=== PATIENT | male | born 1945 | race Caucasian/White ===

== ENCOUNTER → 2017-09-10 | Day surgery (SDC) | payer MEDICARE ==
[~2017-09-10] MED LIST: LACTATED RINGER'S 1000 ML INJ 1,000 ML; PROPOFOL 200 MG/20 ML AMP IV; RESP: ALBUTEROL 2.5 MG/3 ML NEB (SCH)
== END | disposition home or self-care (01) ==
LOC: ESDC 08:00
DX: K21.9 Gastro-esophageal reflux disease without esophagitis (principal); K44.9 Diaphragmatic hernia without obstruction or gangrene; K29.70 Gastritis, unspecified, without bleeding; K22.9 Disease of esophagus, unspecified
CPT/HCPCS: 00731; 88305; 88305-59; 88312

== ENCOUNTER 2018-03-24 12:59 | Inpatient (IN) ==
[2018-03-24] MEDS ORDERED: Acetaminophen 325 MG Tablet PO PRN (16:41)
[2018-03-24] MEDS ORDERED: Enoxaparin Inj 40 MG/0.4 ML Syringe SQ SCH (16:45)
--- NOTE | 2018-03-24 16:57 | P.HP ---
<Julia Ag - Last Filed: 03/24/18 17:28> History of Present Illness Primary Care Physician: Ileana Silva MD Chief Complaint: BLE edema History of Present Illness: This is a pleasant 72 year old male with a past medial history which includes Mitral valve regurgitation, Atrial fibrillation s/p ablation x 3, HTN, CKD 3, Gout, hyperlipidemia and GERD. Patient reports over the past month he has been having problems with bilateral lower extremity edema and weight gain. Patient initially was treated by his PCP and his PO Lasix was increased to 40 mg a.m. and 20 mg p.m. At that time patient lost 15 pounds that he gained the weight back again patient's PCP again recently increased his p.o. Lasix to 40 mg p.o. twice daily with no relief in his symptoms. Patient also reports that his abdominal girth has increased as his pants are fitting tighter. Patient denies orthopnea or PND. patient called for an urgent visit with his editorial director Dr. Lyons today was seen by the PA and referred to [facility] as a direct admit for CHF exacerbation. Patient had an echocardiogram done in the office which per verbal report showed normal EF, no diastolic dysfunction, moderate mitral regurgitation volume overload in the right heart. Patient also reports his INR in the office today was greater than 4. Patient denies fevers chills nausea vomiting diarrhea constipation or chest pain. PMH: Mitral valve regurgitation, Atrial fibrillation s/p ablation x 3, HTN, Gout, hyperlipidemia and GERD. PSxH: cardioversion 12/2012 cardiac ablation x 3 12/2012, 02/2014 and 01/[address] Martinez meniscal tear repair 1960s Social history: Denies ETOH use Denies Tobacco use Denies illicit drug use FMH: reviewed and noncontributory - Diagnosis (1) CHF exacerbation Inpatient Certification: I certify that the inpatient services were ordered in accordance with Medicare regulations governing the order. This includes certification that hospital inpatient services are reasonable and necessary and in the case of services not specified as inpatient-only under 42 CFR 419.22(n), that they are appropriately provided as inpatient services in accordance to with the 2-midnight benchmark under 43 CFR 412.3(e) Estimated Total Length of Stay (Days): 3 Plans for Post Hospital Care: Home health Review of Systems All other systems reviewed negative except as stated in HPI Medications and Allergies Allergies Allergy/AdvReac Type Severity Reaction Status Date / Time No Known Allergies Allergy Uncoded 12/30/12 11:34 Home Medications Medication Instructions Recorded Confirmed Type allopurinol 150 mg PO DAILY 03/24/18 03/24/18 History amlodipine 2.5 mg PO DAILY 03/24/18 03/24/18 History aspirin [Aspir-81] 81 mg PO DAILY 03/24/18 03/24/18 History atorvastatin 10 mg PO DAILY 03/24/18 03/24/18 History cholecalciferol (vitamin D3) 2,000 unit PO DAILY 03/24/18 03/24/18 History [Vitamin D3] furosemide [Lasix] 40 mg PO BID 03/24/18 03/24/18 History glucosamine-chondroitin [Osteo 1 tab PO DAILY 03/24/18 03/24/18 History Bi-Flex] hydrocodone-acetaminophen 1 tab PO BID 03/24/18 03/24/18 History metoprolol tartrate 25 mg PO BID 03/24/18 03/24/18 History multivitamin 1 tab PO DAILY 03/24/18 03/24/18 History omeprazole 40 mg PO BID 03/24/18 03/24/18 History potassium chloride 10 meq PO DAILY 03/24/18 03/24/18 History ranitidine HCl 150 mg PO HS 03/24/18 03/24/18 History temazepam 30 mg PO HS PRN 03/24/18 03/24/18 History vit B6-mag cit,oxid-potass cit PO BID 03/24/18 History [Theralith XR] warfarin 2.5 mg PO DAILY 03/24/18 03/24/18 History Active Medications: Active Medications Acetaminophen (Tylenol) 650 mg PO Q4H PRN PRN Reason: Temp > 100.4 Al Hydroxide/Mg Hydroxide (Milk Of Magnesia Liq) 30 ml PO Q12H PRN PRN Reason: Mild Constipation Ondansetron HCl (Zofran Inj) 4 mg IV.PUSH Q6H PRN PRN Reason: NAUSEA OR VOMITING Senna/Docusate Sodium (Margaret-Colace) 1 tab PO BID [facility] Exam Vital signs: Vital Signs 03/24/18 16:02 Temperature 97.1 F L Pulse Rate 45 L Respiratory Rate 16 Blood Pressure 121/68 Pulse Oximetry 96 Narrative: GENERAL: This is a well-nourished, well-developed patient, in no apparent distress. CARDIOVASCULAR: Regular rate and rhythm with 3/6 systolic murmur radiation to left axilla RESPIRATORY: crackles Bilateral bases GASTROINTESTINAL: Abdomen soft, non-tender, nondistended. Normal active bowel sounds MUSCULOSKELETAL: Extremities without clubbing, cyanosis. BLE edema up to the thigh 2-3+ NEURO: Alert & Oriented x4 to person, place, time, situation. Moves all ext x4 Caprini VTE Risk Assessment Caprini VTE Risk Assessment: Moderate/High Risk (score >= 2) Caprini Risk Assessment Model: Point Value = 1 Point Value = 2 Point Value = 3 Point Value = 5 Age 41-60 Minor surgery BMI > 25 kg/m2 Swollen legs Varicose veins or History of unexplained or recurrent spontaneous Oral contraceptives or hormone replacement Sepsis (< 1 month) Serious lung disease, including pneumonia (< 1 month) Abnormal pulmonary function Acute myocardial infarction Congestive heart failure (< 1 month) History of inflammatory bowel disease Medical patient at bed rest Age 61-74 Arthroscopic surgery Major open surgery (> 45 min) Laparoscopic surgery (> 45 min) Malignancy Confined to bed (> 72 hours) Immobilizing plaster cast Central venous access Age >= 75 History of VTE Family history of VTE Factor V Leiden Prothrombin [id number] Lupus anticoagulant Anticardiolipin antibodies Elevated serum homocysteine Heparin-induced thrombocytopenia Other congenital or acquired thrombophilia Stroke (< 1 month) Elective arthroplasty Hip, pelvis, or leg fracture Acute spinal cord injury (< 1 month) Prophylaxis Regimen: Total Risk Factor Score Risk Level Prophylaxis Regimen 0-1 Low Early ambulation 2 Moderate Order ONE of the following: *Sequential Compression Device (SCD) *Heparin 5000 units SQ BID 3-4 Higher Order ONE of the following medications: *Heparin 5000 units SQ TID *Enoxaparin/Lovenox 40 mg SQ daily (WT < 150 kg, CrCl > 30 mL/min) *Enoxaparin/Lovenox 30 mg SQ daily (WT < 150 kg, CrCl > 10-29 mL/min) *Enoxaparin/Lovenox 30 mg SQ BID (WT < 150 kg, CrCl > 30 mL/min) AND/OR *Sequential Compression Device (SCD) 5 or more Highest Order ONE of the following medications: *Heparin 5000 units SQ TID (Preferred with Epidurals) *Enoxaparin/Lovenox 40 mg SQ daily (WT < 150 kg, CrCl > 30 mL/min) *Enoxaparin/Lovenox 30 mg SQ daily (WT < 150 kg, CrCl > 10-29 mL/min) *Enoxaparin/Lovenox 30 mg SQ BID (WT < 150 kg, CrCl > 30 mL/min) AND *Sequential Compression Device (SCD) Assessment and Plan - Assessment (1) CHF exacerbation Code(s): I50.9 - Heart failure, unspecified Status: Acute Plan: CHF exacerbation Mitral valve regurgitation Patient was instructed to [facility] per the request of his editorial director Dr. Lyons. Patient reports he has gained approximately 15 pounds and has noticed bilateral lower extremity edema as well as mild shortness of breath. Echocardiogram done at outpatient editorial director office per verbal report showed normal EF, no diastolic dysfunction, moderate mitral regurgitation volume overload in the right heart STAT BMP, magnesium and phosphorus requested after laboratory data resulted and plan to start Lasix 40 mg IV twice daily monitor daily weights strict I&O Consultation placed to patient's editorial director Dr. Lyons Atrial fibrillation s/p ablation x 3 Patient had an INR check an outpatient editorial director office was greater than 4 will hold Coumadin at this time Recheck INR in a.m. Continuous telemetry monitoring HTN Continue patient's home amlodipine 2.5 mg p.o. daily Monitor blood pressure Gout Continue patient's home allopurinol hyperlipidemia Continue patients on statin GERD Continue patient's home Omeprazole and Zantac DVT prophylaxis with SCDs patient is also on Coumadin <Fito Perales - Last Filed: 03/24/18 21:45> History of Present Illness Primary Care Physician: Ileana Silva MD - Diagnosis (1) CHF exacerbation Inpatient Certification: I certify that the inpatient services were ordered in accordance with Medicare regulations governing the order. This includes certification that hospital inpatient services are reasonable and necessary and in the case of services not specified as inpatient-only under 42 CFR 419.22(n), that they are appropriately provided as inpatient services in accordance to with the 2-midnight benchmark under 43 CFR 412.3(e) Medications and Allergies Active Medications: Active Medications Acetaminophen (Tylenol) 650 mg PO Q4H PRN PRN Reason: Temp > 100.4 Al Hydroxide/Mg Hydroxide (Milk Of Abi Dumont) 30 ml PO Q12H PRN PRN Reason: Mild Constipation Allopurinol (Zyloprim) 150 mg PO DAILY [facility] Amlodipine Besylate (Norvasc) 2.5 mg PO DAILY [facility] Aspirin (Ecotrin) 81 mg PO DAILY [facility] Atorvastatin Calcium (Lipitor) 10 mg PO DAILY [facility] Miscellaneous (Pill Splitter) 1 each OTHER UNSCH PRN PRN Reason: SEE LABEL COMMENTS Ondansetron HCl (Zofran Inj) 4 mg IV.PUSH Q6H PRN PRN Reason: NAUSEA OR VOMITING Pantoprazole Sodium (Protonix) 40 mg PO BID [facility] Last Admin: 03/24/18 20:49 Dose: 40 mg Senna/Docusate Sodium (Margaret-Colace) 1 tab PO BID [facility] Last Admin: 03/24/18 20:48 Dose: 1 tab Exam Vital signs: Vital Signs 03/24/18 16:02 03/24/18 20:00 Temperature 97.1 F L 97.8 F Pulse Rate 45 L 80 Respiratory Rate 16 20 Blood Pressure 121/68 149/93 H Pulse Oximetry 96 93 L Results - Labs CBC & Chem 7: 03/24/18 17:19 Labs: Laboratory Results - last 24 hr 03/24/18 03/24/18 17:19 17:19 Sodium 141 Potassium 4.0 Chloride 105 Carbon Dioxide 31.0 Anion Gap 5 BUN 30 H Creatinine 2.04 H Estimated GFR 32 L Random Glucose 84 Calcium 8.9 Phosphorus 3.4 Magnesium 2.3 - Imaging Impressions Chest X-Ray 03/24/18 00:00 CONCLUSION: Borderline compensated cardiomegaly. Otherwise negative one view chest x-ray. Caprini VTE Risk Assessment Caprini Risk Assessment Model: Point Value = 1 Point Value = 2 Point Value = 3 Point Value = 5 Age 41-60 Minor surgery BMI > 25 kg/m2 Swollen legs Varicose veins or History of unexplained or recurrent spontaneous Oral contraceptives or hormone replacement Sepsis (< 1 month) Serious lung disease, including pneumonia (< 1 month) Abnormal pulmonary function Acute myocardial infarction Congestive heart failure (< 1 month) History of inflammatory bowel disease Medical patient at bed rest Age 61-74 Arthroscopic surgery Major open surgery (> 45 min) Laparoscopic surgery (> 45 min) Malignancy Confined to bed (> 72 hours) Immobilizing plaster cast Central venous access Age >= 75 History of VTE Family history of VTE Factor V Leiden Prothrombin [id number] Lupus anticoagulant Anticardiolipin antibodies Elevated serum homocysteine Heparin-induced thrombocytopenia Other congenital or acquired thrombophilia Stroke (< 1 month) Elective arthroplasty Hip, pelvis, or leg fracture Acute spinal cord injury (< 1 month) Prophylaxis Regimen: Total Risk Factor Score Risk Level Prophylaxis Regimen 0-1 Low Early ambulation 2 Moderate Order ONE of the following: *Sequential Compression Device (SCD) *Heparin 5000 units SQ BID 3-4 Higher Order ONE of the following medications: *Heparin 5000 units SQ TID *Enoxaparin/Lovenox 40 mg SQ daily (WT < 150 kg, CrCl > 30 mL/min) *Enoxaparin/Lovenox 30 mg SQ daily (WT < 150 kg, CrCl > 10-29 mL/min) *Enoxaparin/Lovenox 30 mg SQ BID (WT < 150 kg, CrCl > 30 mL/min) AND/OR *Sequential Compression Device (SCD) 5 or more Highest Order ONE of the following medications: *Heparin 5000 units SQ TID (Preferred with Epidurals) *Enoxaparin/Lovenox 40 mg SQ daily (WT < 150 kg, CrCl > 30 mL/min) *Enoxaparin/Lovenox 30 mg SQ daily (WT < 150 kg, CrCl > 10-29 mL/min) *Enoxaparin/Lovenox 30 mg SQ BID (WT < 150 kg, CrCl > 30 mL/min) AND *Sequential Compression Device (SCD) Assessment and Plan - Assessment (1) CHF exacerbation Code(s): I50.9 - Heart failure, unspecified Status: Acute Plan: The exam, history, and the medical decision-making described in the above note were completed with the assistance of the mid-level provider. I reviewed and agree with the findings presented. I attest that I had a [id number] encounter with the patient on the same day, and personally performed and documented my assessment and findings in the medical record. Pt directtly admitted for acute chf and volume overload. iv lasix and monitor bmp and output. discussed echo result from today with dr Lyons office.
[2018-03-24 17:53] LABS: Calcium 8.9 mg/dL (8.5-10.1); Magnesium 2.3 mg/dL (1.5-2.5)
--- NOTE | 2018-03-24 18:52 | XR ---
EXAM DATE: 03/24/2018 6:48 PM EDT AGE/SEX: 72 years / Male INDICATIONS: Shortness of breath. CLINICAL DATA: This is the patient's initial encounter. Patient reports that signs and symptoms have been present for 1 day and indicates a pain score of 0/10. MEDICAL/SURGICAL HISTORY: . A-Fib. None. COMPARISON: No prior exams available for comparison. FINDINGS: No infiltrate, effusion or pneumothorax demonstrated. Heart size upper limits of normal. CONCLUSION: Borderline compensated cardiomegaly. Otherwise negative one view chest x-ray. Electronically signed by: Migue Hargrove MD 03/24/2018 6:50 PM EDT
[2018-03-24] MEDS: Senna/Docusate Sodium 8.6/50 MG Tablet PO SCH (20:48)
[2018-03-25 07:23] LABS: Baso # (Auto) 0.1 th/mm3 (0.0-0.2); Baso % (Auto) 1.6 % (0.0-2.0); Eos # (Auto) 0.2 th/mm3 (0.0-0.4); Eos % (Auto) 3.2 % (0.0-4.0); Hematocrit 50.1 % (39.0-51.0); Hemoglobin 16.9 gm/dL (13.0-17.0); Lymph # (Auto) 0.9 th/mm3 (1.0-4.8); Lymph % (Auto) 16.1 % (9.0-44.0); Mean Corpuscular HGB Conc 33.8 % (32.0-36.0); Mean Corpuscular Hemoglobin 33.8 pg (27.0-34.0); Mean Corpuscular Volume 99.9 fL (80.0-100.0); Mean Platelet Volume 9.5 fL (7.0-11.0); Mono # (Auto) 0.6 th/mm3 (0.0-0.9); Mono % (Auto) 11.4 % (0.0-8.0); Neut # (Auto) 3.8 th/mm3 (1.8-7.7); Neut % (Auto) 67.7 % (16.0-70.0); Platelet Count 132 th/mm3 (150-450); Red Blood Count 5.01 mil/mm3 (4.50-5.90); Red Cell Distribution Width 17.6 % (11.6-17.2); White Blood Count 5.7 th/mm3 (4.0-11.0)
[2018-03-25 07:34] LABS: INR 3.5 Ratio; Prothrombin Time 35.1 sec (9.8-11.6)
[2018-03-25 07:45] LABS: Carbon Dioxide 22.7 meq/L (21.0-32.0); Potassium 3.7 meq/L (3.5-5.1)
[2018-03-25] MEDS: Temazepam 15 MG Capsule PO SCH ×2 (08:07→22:27)
[2018-03-25] MEDS: amLODIPine 5 MG Tablet PO SCH (09:39)
[2018-03-25] MEDS: Senna/Docusate Sodium 8.6/50 MG Tablet PO SCH ×2 (09:39→22:27)
[2018-03-25] MEDS: Allopurinol 300 MG Tablet PO SCH (09:39)
--- NOTE | 2018-03-25 09:53 | P.PNIM ---
Subjective Interval history: breathing better. less swelling lower extremities. he is limiting fluid intake on his own. dry weight 213 pounds. Physical Exam Vital signs: Vital Signs 03/24/18 16:02 03/24/18 20:00 03/24/18 23:45 Temperature 97.1 F L 97.8 F Pulse Rate 45 L 45 L 55 L Respiratory Rate 16 20 Blood Pressure 121/68 149/93 H Pulse Oximetry 96 93 L 03/25/18 00:00 03/25/18 03:45 03/25/18 04:00 Temperature 97.8 F 97.7 F Pulse Rate 53 L 64 65 Respiratory Rate 20 20 Blood Pressure 128/75 149/85 H Pulse Oximetry 94 L 92 L Intake & Output 03/24/18 03/25/18 03/25/18 18:59 06:59 18:59 Intake Total 240 / 240 Output Total 1400 / 1400 Balance -1160 / -1160 Weight 103.5 kg 103.5 kg Intake: Oral 240 / 240 Output: Urine 1400 / 1400 Other: Weight On Admission 103.5 kg heart reg. ceasar lsb rad to axilla lung basilar crackles...improved abd s/nt/nabs ext 2plus lower ext edema to thighs improving. pedal edema resolved. Results - Labs CBC & Chem 7: 03/25/18 06:30 03/25/18 06:30 Laboratory Results - last 24 hr 03/24/18 03/24/18 03/25/18 17:19 17:19 06:30 WBC 5.7 RBC 5.01 Hgb 16.9 Hct 50.1 MCV 99.9 MCH 33.8 MCHC 33.8 RDW 17.6 H Plt Count 132 L MPV 9.5 Neut % (Auto) 67.7 Lymph % (Auto) 16.1 [place] % (Auto) 11.4 H Eos % (Auto) 3.2 Baso % (Auto) 1.6 Neut # (Auto) 3.8 Lymph # (Auto) 0.9 L [place] # (Auto) 0.6 Eos # (Auto) 0.2 Baso # (Auto) 0.1 WBC Differential . Differential Comment Auto diff final PT INR Sodium 141 Potassium 4.0 Chloride 105 Carbon Dioxide 31.0 Anion Gap 5 BUN 30 H Creatinine 2.04 H Estimated GFR 32 L Random Glucose 84 Calcium 8.9 Phosphorus 3.4 Magnesium 2.3 08/08/18 08/08/18 06:30 06:30 WBC RBC Hgb Hct MCV MCH MCHC RDW Plt Count MPV Neut % (Auto) Lymph % (Auto) [place] % (Auto) Eos % (Auto) Baso % (Auto) Neut # (Auto) Lymph # (Auto) [place] # (Auto) Eos # (Auto) Baso # (Auto) WBC Differential Differential Comment PT 35.1 H INR 3.5 Sodium 142 Potassium 3.7 Chloride 106 Carbon Dioxide 22.7 Anion Gap 13 BUN 27 H Creatinine 1.75 H Estimated GFR 39 L Random Glucose 75 Calcium 9.0 Phosphorus Magnesium - Imaging Impressions Chest X-Ray 03/24/18 00:00 CONCLUSION: Borderline compensated cardiomegaly. Otherwise negative one view chest x-ray. Assessment and Plan - Assessment (1) CHF exacerbation Code(s): I50.9 - Heart failure, unspecified Status: Acute Plan: - Assessment (1) CHF exacerbation Code(s): I50.9 - Heart failure, unspecified Status: Acute Plan: CHF exacerbation moderate Mitral valve regurgitation Patient was instructed to [facility] per the request of his roll form operator Dr. Lyons. Patient reports he has gained approximately 15 pounds and has noticed bilateral lower extremity edema as well as mild shortness of breath. Echocardiogram done at outpatient roll form operator office per verbal report showed normal EF, no diastolic dysfunction, moderate mitral regurgitation volume overload in the right heart Consultation placed to patient's roll form operator Dr. Lyons. pt will inform his roll form operator of some ant chest burning with exertion. cont iv lasix and kcl bid and monitor bmp. cr improved to 1.7 telemetry. pt is fluid restricting to less than 1.5L weight pt and diurese back to dry weight of around 213pounds. Atrial fibrillation s/p ablation x 3 Patient had an INR check an outpatient roll form operator office was greater than 4 will hold Coumadin at this time inr 3.5 today Continuous telemetry monitoring HTN Continue patient's home amlodipine 2.5 mg p.o. daily Monitor blood pressure Gout Continue patient's home allopurinol hyperlipidemia Continue patients on statin GERD Continue patient's home Omeprazole and Zantac DVT prophylaxis with SCDs patient is also on Coumadin
--- NOTE | 2018-03-25 10:26 | P.CONCA ---
History of Present Illness Service: Cardiology Consult date: 03/25/18 Reason for Consult: Congestive heart failure Primary Care Provider: Ileana Silva MD Chief Complaint: BLE edema History of Present Illness: Pleasant 72-year-old male was seen in our office yesterday for an urgent visit with a complaint of a recent 20 pound weight gain shortness of breath on exertion and central chest burning. He has a significant past cardiac history of atrial fibrillation with 3 ablations in the past with Dr. Landaverde, currently on Coumadin. His INR was elevated in the office yesterday. He has a history of ASHD with a heart cath in 2011 showing a 50% LAD lesion with normal LV function he had a negative cardiac PET scan July 2015. History of hypertension managed with medications on exam and office yesterday he had 3+ bilateral lower extremity pitting edema, JVD elevated at 4 cm, despite recent increase in diuretics minimal diuresis was noted. Patient has a history of renal insufficiency, follows with Dr. Coombs. Most recent creatinine was 1.9 last week. He admits to increasing shortness of breath over the past couple of weeks. Had chest tightness [place] few [place] Denies any chest pain today. Patient reports significant diuresis overnight, he reports his breathing has improved some he was able to lay in the bed without feeling short of breath, edema has improved when compared to yesterday. We will plan to continue with IV diuresis and careful monitoring of renal function. Nephrology has been consulted. Review of Systems Constitutional: Reports lack of energy, Reports weakness Cardiovascular: Reports shortness of breath, Reports shortness of breath with activity, Reports shortness of breath when lying down Comments: had chest burning a few weeks ago. Respiratory: Reports shortness of breath, Reports shortness of breath with activity Comments: admits to increased abdominal girth. Comments: increase in BLE edema. PMFSH - History History Provided By: Patient - Medical History Medical History: Medical History (Last Updated 03/25/18 @ 10:20 by Kalina Shadeed) Mitral regurgitation (Acute) Heart failure (Acute) Atrial fibrillation (Acute) - Tobacco History Second Hand Smoke Exposure: No Tobacco Use In Past 30 Days: No Smoking Status: Former smoker Tobacco Type: Cigarettes - Alcohol History How Often Do You Have a Drink Containing Alcohol: Never - Substance Use History Substance History: No History of Abuse - Immunization History Tetanus Immunization: <5 Years Hx Influenza Vaccine This Season: Yes Medications and Allergies Active Medications: Active Medications Acetaminophen (Tylenol) 650 mg PO Q4H PRN PRN Reason: Temp > 100.4 Hydrocodone Bitart/Acetaminophen ([place] 5/325) 1 tab PO ONCE ONE Stop: 03/25/18 09:50 Hydrocodone Bitart/Acetaminophen ([place] 5/325) 1 tab PO BID@07,17 [facility] Al Hydroxide/Mg Hydroxide (Milk Of [place]) 30 ml PO Q12H PRN PRN Reason: Mild Constipation Allopurinol (Zyloprim) 150 mg PO DAILY [facility] Last Admin: 03/25/18 09:39 Dose: 150 mg Amlodipine Besylate (Norvasc) 2.5 mg PO DAILY [facility] Last Admin: 03/25/18 09:39 Dose: 2.5 mg Aspirin (Ecotrin) 81 mg PO DAILY [facility] Last Admin: 03/25/18 09:40 Dose: 81 mg Atorvastatin Calcium (Lipitor) 10 mg PO DAILY [facility] Last Admin: 03/25/18 09:40 Dose: 10 mg Furosemide (Lasix Inj) 40 mg IV.PUSH BID@0900,1800 [facility] Last Admin: 03/25/18 09:38 Dose: 40 mg Miscellaneous (Pill Splitter) 1 each OTHER UNSCH PRN PRN Reason: SEE LABEL COMMENTS Ondansetron HCl (Zofran Inj) 4 mg IV.PUSH Q6H PRN PRN Reason: NAUSEA OR VOMITING Pantoprazole Sodium (Protonix) 40 mg PO BID [facility] Last Admin: 03/25/18 09:39 Dose: 40 mg Potassium Chloride (K-Dur) 20 meq PO BID [facility] Senna/Docusate Sodium (Margaret-Colace) 1 tab PO BID [facility] Last Admin: 03/25/18 09:39 Dose: 1 tab Temazepam (Restoril) 30 mg PO HS [facility] Last Admin: 03/25/18 08:07 Dose: Not Given Allergies Allergy/AdvReac Type Severity Reaction Status Date / Time No Known Allergies Allergy Uncoded 12/30/12 11:34 Home Medications Medication Instructions Recorded Confirmed Type allopurinol 150 mg PO DAILY 03/24/18 03/24/18 History amlodipine 2.5 mg PO DAILY 03/24/18 03/24/18 History aspirin [Aspir-81] 81 mg PO DAILY 03/24/18 03/24/18 History atorvastatin 10 mg PO DAILY 03/24/18 03/24/18 History cholecalciferol (vitamin D3) 2,000 unit PO DAILY 03/24/18 03/24/18 History [Vitamin D3] furosemide [Lasix] 40 mg PO BID 03/24/18 03/24/18 History glucosamine-chondroitin [Osteo 1 tab PO DAILY 03/24/18 03/24/18 History Bi-Flex] hydrocodone-acetaminophen 1 tab PO BID 03/24/18 03/24/18 History metoprolol tartrate 25 mg PO BID 03/24/18 03/24/18 History multivitamin 1 tab PO DAILY 03/24/18 03/24/18 History omeprazole 40 mg PO BID 03/24/18 03/24/18 History potassium chloride 10 meq PO DAILY 03/24/18 03/24/18 History ranitidine HCl 150 mg PO HS 03/24/18 03/24/18 History temazepam 30 mg PO HS PRN 03/24/18 03/24/18 History vit B6-mag cit,oxid-potass cit PO BID 03/24/18 History [Theralith XR] warfarin 2.5 mg PO DAILY 03/24/18 03/24/18 History Exam Vital signs: Vital Signs 03/24/18 16:02 03/24/18 20:00 03/24/18 23:45 Temperature 97.1 F L 97.8 F Pulse Rate 45 L 45 L 55 L Respiratory Rate 16 20 Blood Pressure 121/68 149/93 H Pulse Oximetry 96 93 L 03/25/18 00:00 03/25/18 03:45 03/25/18 04:00 Temperature 97.8 F 97.7 F Pulse Rate 53 L 64 65 Respiratory Rate 20 20 Blood Pressure 128/75 149/85 H Pulse Oximetry 94 L 92 L Intake & Output 03/24/18 03/25/18 03/25/18 18:59 06:59 18:59 Intake Total 240 / 240 Output Total 1400 / 1400 Balance -1160 / -1160 Weight 103.5 kg 103.5 kg Intake: Oral 240 / 240 Output: Urine 1400 / 1400 Other: Weight On Admission 103.5 kg - Constitutional no acute distress - Routine HEENT Exam Head: Present: atraumatic Eye: Present: normal accommodation ENT: Present: mucous membranes moist - Routine Neck Exam Present: JVD - Routine Respiratory Exam Present: crackles, diminished air movement - Routine Cardiovascular Exam Present: RRR - Routine Abdominal Exam Present: distended - Routine Extremities Exam Comments: 3+ BLE pitting edema - Routine Skin Exam Present: intact - Routine Neurological Exam Present: alert, oriented X3 Results 03/25/18 06:30 03/25/18 06:30 Coagulation 03/25/18 Range/Units 06:30 PT 35.1 H (9.8-11.6) sec CBC 03/25/18 Range/Units 06:30 WBC 5.7 (4.0-11.0) th/mm3 RBC 5.01 (4.50-5.90) mil/mm3 Hgb 16.9 (13.0-17.0) gm/dL Hct 50.1 (39.0-51.0) % Plt Count 132 L (150-450) th/mm3 Neut # (Auto) 3.8 (1.8-7.7) th/mm3 Lymph # (Auto) 0.9 L (1.0-4.8) th/mm3 [place] # (Auto) 0.6 (0.0-0.9) th/mm3 Eos # (Auto) 0.2 (0.0-0.4) th/mm3 Baso # (Auto) 0.1 (0.0-0.2) th/mm3 Comprehensive Metabolic Panel 03/24/18 03/25/18 Range/Units 17:19 06:30 Sodium 141 142 (136-145) meq/L Potassium 4.0 3.7 (3.5-5.1) meq/L Chloride 105 106 (98-107) meq/L Carbon Dioxide 31.0 22.7 (21.0-32.0) meq/L BUN 30 H 27 H (7-18) mg/dL Creatinine 2.04 H 1.75 H (0.60-1.30) mg/dL Calcium 8.9 9.0 (8.5-10.1) mg/dL Intake and Output 03/24/18 03/25/18 03/25/18 22:59 06:59 14:59 Intake Total 240 / 240 Output Total 1400 / 1400 Balance -1160 / -1160 Intake: Oral 240 / 240 Output: Urine 1400 / 1400 Other: Weight 103.5 kg 103.5 kg Weight On Admission 103.5 kg Patient Weight 03/26/18 06:59 Weight 103.5 kg Assessment and Plan - Plan Congestive heart failure Atrial fibrillation Renal Insufficiency HTN Hyperlipidemia Acute heart failure with preserved EF. Echocardiogram was completed yesterday in office and showed preserved ejection fraction of 55%, bilateral atrial enlargement, left ventricular enlargement, left ventricular hypertrophy, posterior leaflet calcification, eccentric moderate MR jet with nonclosure of mitral valve leaflets, aortic cusp calcification, right heart enlargement, pulmonary hypertension, RV systolic dysfunction, RVSP = 92mmgh, D shaped LV. -Will continue with Lasix 40mg IV BID and careful monitoring of renal function. -Continues in SR. INR was elevated yesterday in office at 4.0. Will hold coumadin and repeat INR in AM -Nephrology consulted -Controlled on current medications. -On statin The patient was seen and evaluated by Dr. Lyons who completed face to face encounter and physical exam, and participated in care, management, and decision making. Code Status: Full Discussed Condition With: Nurse
[2018-03-26] MEDS: amLODIPine 5 MG Tablet PO SCH (08:23)
[2018-03-26] MEDS: Senna/Docusate Sodium 8.6/50 MG Tablet PO SCH ×2 (08:25→21:10)
[2018-03-26] MEDS: Allopurinol 300 MG Tablet PO SCH (08:25)
[2018-03-26 09:45] LABS: INR 3.1 Ratio; Prothrombin Time 31.7 sec (9.8-11.6)
[2018-03-26 10:03] LABS: Calcium 9.1 mg/dL (8.5-10.1); Carbon Dioxide 27.5 meq/L (21.0-32.0); Potassium 3.6 meq/L (3.5-5.1)
--- NOTE | 2018-03-26 11:56 | P.PNIM ---
Subjective Interval history: breathing easier less edema Physical Exam Vital signs: Vital Signs 03/25/18 12:00 03/25/18 16:00 03/25/18 16:01 Temperature 97.3 F L 97.6 F Pulse Rate 59 L 59 L 55 L Respiratory Rate 18 18 Blood Pressure 128/72 121/74 Pulse Oximetry 95 95 03/25/18 19:15 03/25/18 20:00 03/26/18 00:00 Temperature 97.8 F 97.8 F Pulse Rate 55 L 60 59 L Respiratory Rate 18 17 Blood Pressure 139/76 136/93 H Pulse Oximetry 95 94 L 03/26/18 00:11 03/26/18 04:00 03/26/18 08:00 Temperature 97.2 F L 98.0 F Pulse Rate 51 L 62 52 L Respiratory Rate 17 17 Blood Pressure 143/85 H 133/76 Pulse Oximetry 92 L 96 Intake & Output 03/25/18 03/26/18 03/26/18 18:59 06:59 18:59 Intake Total 720 / 720 240 / 240 Output Total 1400 / 1400 500 / 500 Balance -680 / -680 -260 / -260 Weight 103.5 kg 101.4 kg Intake: Oral 720 / 720 240 / 240 Output: Urine 1400 / 1400 500 / 500 Other: # Bowel Movements 1 Weight On Admission 103.5 kg heart reg. systolic murmer radiation to left axilla lung cta abd s/nt ext 2plus pitting edema to knee trista. Results - Labs CBC & Chem 7: 03/25/18 06:30 03/26/18 08:45 Laboratory Results - last 24 hr 03/26/18 03/26/18 08:45 08:45 PT 31.7 H INR 3.1 Sodium 141 Potassium 3.6 Chloride 104 Carbon Dioxide 27.5 Anion Gap 10 BUN 22 H Creatinine 1.68 H Estimated GFR 40 L Random Glucose 86 Calcium 9.1 Assessment and Plan - Assessment (1) CHF exacerbation Code(s): I50.9 - Heart failure, unspecified Status: Acute Plan: - Assessment (1) CHF exacerbation Code(s): I50.9 - Heart failure, unspecified Status: Acute Plan: CHF exacerbation. secondary to mvr until proven otherwise. moderate Mitral valve regurgitation Patient was instructed to [facility] per the request of his row boss Dr. Lyons. Patient reports he has gained approximately 15 pounds and has noticed bilateral lower extremity edema as well as mild shortness of breath. Echocardiogram done at outpatient row boss office per verbal report showed normal EF, no diastolic dysfunction, moderate mitral regurgitation volume overload in the right heart Consultation placed to patient's row boss Dr. Lyons. cont iv lasix but give extra dose today. I weighed him on scale and he is at 217 pounds. dry weight around 213. was 229 before diureses monitor bmp. cr improved. CESAR planned as outpt to further evaluate the mitral valve. Atrial fibrillation s/p ablation x 3 Patient had an INR check an outpatient row boss office was greater than 4 will hold Coumadin at this time inr 3.1 today Continuous telemetry monitoring HTN Continue patient's home amlodipine 2.5 mg p.o. daily Monitor blood pressure Gout Continue patient's home allopurinol hyperlipidemia Continue patients on statin GERD Continue patient's home Omeprazole and Zantac DVT prophylaxis with SCDs patient is also on Coumadin
--- NOTE | 2018-03-26 13:50 | P.PNCA ---
<Cassie Mata - Last Filed: 03/26/18 13:39> Subjective Interval history: The patient complains of progressive BLE edema. No CP, SOB or palpitations. Tele reviewed. BP stable. I/O net negative. Weight loss 2 kg. INR 3.1. Cr 1.68, K+ 3.6 Physical Exam Vital signs: Vital Signs 03/25/18 16:00 03/25/18 16:01 03/25/18 19:15 Temperature 97.6 F Pulse Rate 59 L 55 L 55 L Respiratory Rate 18 Blood Pressure 121/74 Pulse Oximetry 95 03/25/18 20:00 03/26/18 00:00 03/26/18 00:11 Temperature 97.8 F 97.8 F Pulse Rate 60 59 L 51 L Respiratory Rate 18 17 Blood Pressure 139/76 136/93 H Pulse Oximetry 95 94 L 03/26/18 04:00 03/26/18 08:00 03/26/18 12:00 Temperature 97.2 F L 98.0 F 97.6 F Pulse Rate 62 52 L 68 Respiratory Rate 17 17 18 Blood Pressure 143/85 H 133/76 135/72 Pulse Oximetry 92 L 96 95 Intake & Output 03/25/18 03/26/18 03/26/18 18:59 06:59 18:59 Intake Total 720 / 720 240 / 240 Output Total 1400 / 1400 500 / 500 Balance -680 / -680 -260 / -260 Weight 103.5 kg 101.4 kg Intake: Oral 720 / 720 240 / 240 Output: Urine 1400 / 1400 500 / 500 Other: # Bowel Movements 1 Weight On Admission 103.5 kg - Constitutional no acute distress - Routine HEENT Exam Head: Present: normocephalic, atraumatic ENT: Present: mucous membranes moist - Routine Neck Exam Present: JVD - Routine Respiratory Exam Present: rales - Detailed Respiratory Exam bilateral Present: rales - Routine Cardiovascular Exam Present: RRR, murmur, S3 - Routine Abdominal Exam Present: soft - Routine Extremities Exam Present: edema - Routine Skin Exam Present: intact - Routine Neurological Exam Present: alert, oriented X3 Assessment and Plan - Plan Acute congestive heart failure with preserved EF. Mitral regurgitation Atrial fibrillation Resolving YFN HTN Hyperlipidemia Acute heart failure with preserved EF. Echocardiogram was completed yesterday in office and showed preserved ejection fraction of 55%, bilateral atrial enlargement, left ventricular enlargement, left ventricular hypertrophy, posterior leaflet calcification, eccentric moderate MR jet with nonclosure of mitral valve leaflets, aortic cusp calcification, right heart enlargement, pulmonary hypertension, RV systolic dysfunction, RVSP = 92mmgh, D shaped LV. -Lasix IV increased. Received Lasix 40 mg IVP this morning. Pending two additional doses today. - Scheduled K+ - Follow up BMP in the AM. -INR 3.1 today. We will recheck INR tomorrow and plan to resume warfarin tomorrow. -CESAR outpatient The patient was seen and evaluated by Dr. Lyons who completed face to face encounter and physical exam, and participated in care, management, and decision making. <Buddy Lyons - Last Filed: 03/31/18 10:15> Physical Exam Vital signs: Vital Signs 03/26/18 20:00 03/27/18 00:00 03/27/18 01:22 Temperature 97.4 F L 97.8 F Pulse Rate 57 L 66 Respiratory Rate 17 17 17 Blood Pressure 133/74 129/75 Pulse Oximetry 95 97 03/27/18 04:00 03/27/18 04:19 03/27/18 08:00 Temperature 97.6 F Pulse Rate 58 L 69 69 Respiratory Rate 18 Blood Pressure 116/58 L Pulse Oximetry 95 Intake & Output 03/26/18 03/27/18 03/27/18 18:59 06:59 18:59 Intake Total 840 / 840 Output Total 1700 / 1700 Balance -860 / -860 Weight 101 kg Intake: Oral 840 / 840 Output: Urine 1700 / 1700 Other: # Bowel Movements 0 Assessment and Plan - Plan The exam, history, and the medical decision-making described in the above note were completed with the assistance of the mid-level provider. I reviewed and agree with the findings presented. He is doing better may need one more day.
[2018-03-26] MEDS: Temazepam 15 MG Capsule PO SCH (21:10)
[2018-03-27 05:19] LABS: Calcium 8.8 mg/dL (8.5-10.1); Carbon Dioxide 31.4 meq/L (21.0-32.0); Potassium 3.8 meq/L (3.5-5.1)
--- NOTE | 2018-03-27 09:39 | P.PNCA ---
Subjective Interval history: Patient resting in bed, he reports feeling better. Continues to have 3+ BLE pitting edema. Breathing has improved. Creatinine improved on AM labs. Pt is ready to go home. Will plan to discharge after lunch today. Physical Exam Vital signs: Vital Signs 03/26/18 12:00 03/26/18 16:00 03/26/18 20:00 Temperature 97.6 F 97.7 F 97.4 F L Pulse Rate 61 70 57 L Respiratory Rate 18 18 17 Blood Pressure 135/72 125/71 133/74 Pulse Oximetry 95 95 95 03/27/18 00:00 03/27/18 01:22 03/27/18 04:00 Temperature 97.8 F 97.6 F Pulse Rate 66 58 L Respiratory Rate 18 Blood Pressure 129/75 116/58 L Pulse Oximetry 97 95 03/27/18 04:19 Temperature Pulse Rate 69 Respiratory Rate Blood Pressure Pulse Oximetry Intake & Output 03/26/18 03/27/18 03/27/18 18:59 06:59 18:59 Intake Total 840 / 840 Output Total 1700 / 1700 Balance -860 / -860 Weight 101 kg Intake: Oral 840 / 840 Output: Urine 1700 / 1700 Other: # Bowel Movements 0 - Constitutional no acute distress - Routine HEENT Exam Head: Present: atraumatic Eye: Present: PERRL, normal accommodation, conjunctivae pink ENT: Present: mucous membranes moist - Routine Neck Exam Present: JVD Comments: JVD 3cm - Routine Respiratory Exam Present: distant breath sounds - Routine Cardiovascular Exam Present: RRR, murmur - Routine Abdominal Exam Present: soft, distended - Routine Extremities Exam Present: edema Comments: 3+ BLE pitting edema - Routine Skin Exam Present: intact - Routine Neurological Exam Present: alert, oriented X3 - Detailed Neurological Exam: Coma Scale Eye Opening: Spontaneous Verbal Response: Oriented Motor Response: Obey commands [place] Coma Scale Total: 15 - Routine Psychiatric Exam Present: normal affect, cooperative Assessment and Plan - Plan Acute congestive heart failure with preserved EF. Mitral regurgitation Atrial fibrillation Resolving YFN HTN Hyperlipidemia Acute heart failure with preserved EF. Echocardiogram was completed yesterday in office and showed preserved ejection fraction of 55%, bilateral atrial enlargement, left ventricular enlargement, left ventricular hypertrophy, posterior leaflet calcification, eccentric moderate MR jet with nonclosure of mitral valve leaflets, aortic cusp calcification, right heart enlargement, pulmonary hypertension, RV systolic dysfunction, RVSP = 92mmgh, D shaped LV. - Will plan to discharge home on torsemide 20mg BID and KCL 20meq. - Creatinine improving -INR 3.1 today. Will resume home dose of coumadin today. -CESAR outpatient to evaluate valve further. Patient is cleared to DC home from a cardiology standpoint. Will see in office next week for HFU. The patient was seen and evaluated by Dr. Lyons who completed face to face encounter and physical exam, and participated in care, management, and decision making. Discussed Condition With: Nurse
[2018-03-27] MEDS: amLODIPine 5 MG Tablet PO SCH (10:31)
[2018-03-27] MEDS: Allopurinol 300 MG Tablet PO SCH (10:32)
[2018-03-27] MEDS: Senna/Docusate Sodium 8.6/50 MG Tablet PO SCH (10:32)
--- NOTE | 2018-03-27 10:54 | P.PNIM ---
Subjective Interval history: eager for dc says his remaining swelling below the knee is is longtime baseline. breathing ok and ambulating. Physical Exam Vital signs: Vital Signs 03/26/18 12:00 03/26/18 16:00 03/26/18 20:00 Temperature 97.6 F 97.7 F 97.4 F L Pulse Rate 61 70 57 L Respiratory Rate 18 18 17 Blood Pressure 135/72 125/71 133/74 Pulse Oximetry 95 95 95 03/27/18 00:00 03/27/18 01:22 03/27/18 04:00 Temperature 97.8 F 97.6 F Pulse Rate 66 58 L Respiratory Rate 17 17 18 Blood Pressure 129/75 116/58 L Pulse Oximetry 97 95 03/27/18 04:19 Temperature Pulse Rate 69 Respiratory Rate Blood Pressure Pulse Oximetry Intake & Output 03/26/18 03/27/18 03/27/18 18:59 06:59 18:59 Intake Total 840 / 840 Output Total 1700 / 1700 Balance -860 / -860 Weight 101 kg Intake: Oral 840 / 840 Output: Urine 1700 / 1700 Other: # Bowel Movements 0 heart reg lung cta abd s/nt ext 2plus pitting below knee trista. Results - Labs CBC & Chem 7: 03/25/18 06:30 03/27/18 04:36 Laboratory Results - last 24 hr 03/26/18 03/27/18 20:03 04:36 Sodium 141 Potassium 3.8 Chloride 103 Carbon Dioxide 31.4 Anion Gap 7 BUN 19 H Creatinine 1.61 H Estimated GFR 42 L POC Glucose 83 Random Glucose 81 Calcium 8.8 Assessment and Plan - Assessment (1) CHF exacerbation Code(s): I50.9 - Heart failure, unspecified Status: Acute Plan: - Assessment (1) CHF exacerbation Code(s): I50.9 - Heart failure, unspecified Status: Acute Plan: CHF exacerbation. secondary to mvr until proven otherwise. moderate Mitral valve regurgitation Patient was instructed to [facility] per the request of his continuous dryout operator helper Dr. Lyons. Patient reports he has gained approximately 15 pounds and has noticed bilateral lower extremity edema as well as mild shortness of breath. Echocardiogram done at outpatient continuous dryout operator helper office per verbal report showed normal EF, no diastolic dysfunction, moderate mitral regurgitation volume overload in the right heart Consultation placed to patient's continuous dryout operator helper Dr. Lyons. Pt was given iv lasix and wt dropped from 229 to 111 pounds this AM. cr is improving down to 1.6 discussed with his continuous dryout operator helper....plan to give 2more dose iv lasix today then dc later today on torsemide 20mg bid with 20 kcl and lower coumadin to 1.25mg daily....f/u next week in cardiology office CESAR planned as outpt to further evaluate the mitral valve. Atrial fibrillation s/p ablation x 3 Patient had an INR check an outpatient continuous dryout operator helper office was greater than 4 will hold Coumadin at this time see above HTN Continue patient's home amlodipine 2.5 mg p.o. daily Monitor blood pressure Gout Continue patient's home allopurinol hyperlipidemia Continue patients on statin GERD Continue patient's home Omeprazole and Zantac DVT prophylaxis with SCDs patient is also on Coumadin
[2018-03-27 11:39] LABS: INR 2.7 Ratio
--- NOTE | 2018-04-03 08:31 | P.DS ---
Date of admission: 03/24/18 14:06 Primary care physician: Ileana Silva MD Anticipated date of discharge: 03/27/18 Brief History from admission: This is a pleasant 72 year old male with a past medial history which includes Mitral valve regurgitation, Atrial fibrillation s/p ablation x 3, HTN, CKD 3, Gout, hyperlipidemia and GERD. Patient reports over the past month he has been having problems with bilateral lower extremity edema and weight gain. Patient initially was treated by his PCP and his PO Lasix was increased to 40 mg a.m. and 20 mg p.m. At that time patient lost 15 pounds that he gained the weight back again patient's PCP again recently increased his p.o. Lasix to 40 mg p.o. twice daily with no relief in his symptoms. Patient also reports that his abdominal girth has increased as his pants are fitting tighter. Patient denies orthopnea or PND. patient called for an urgent visit with his hydroelectric plant electrical engineer Dr. Lyons today was seen by the PA and referred to [facility] as a direct admit for CHF exacerbation. Patient had an echocardiogram done in the office which per verbal report showed normal EF, no diastolic dysfunction, moderate mitral regurgitation volume overload in the right heart. Patient also reports his INR in the office today was greater than 4. Patient denies fevers chills nausea vomiting diarrhea constipation or chest pain. PMH: Mitral valve regurgitation, Atrial fibrillation s/p ablation x 3, HTN, Gout, hyperlipidemia and GERD. PSxH: cardioversion 12/2012 cardiac ablation x 3 12/2012, 02/2014 and 01/[address] Martinez meniscal tear repair 1960s Social history: Denies ETOH use Denies Tobacco use Denies illicit drug use FMH: reviewed and noncontributory DS: Diagnosis - Discharge Diagnosis (1) CHF exacerbation Status: Acute DS: Medications - Discharge Medications Prescriptions: potassium chloride 20 meq PO DAILY 30 Days tab torsemide 20 mg PO BID 30 Days #120 tab warfarin [Coumadin] 1.25 mg PO DAILY 30 Days #15 tab DS: Summary Hospital Course: (1) CHF exacerbation Code(s): I50.9 - Heart failure, unspecified Status: Acute Plan: CHF exacerbation. secondary to mvr until proven otherwise. moderate Mitral valve regurgitation Patient was instructed to [facility] per the request of his hydroelectric plant electrical engineer Dr. Lyons. Patient reports he has gained approximately 15 pounds and has noticed bilateral lower extremity edema as well as mild shortness of breath. Echocardiogram done at outpatient hydroelectric plant electrical engineer office per verbal report showed normal EF, no diastolic dysfunction, moderate mitral regurgitation volume overload in the right heart Consultation placed to patient's hydroelectric plant electrical engineer Dr. Lyons. Pt was given iv lasix and wt dropped from 229 to 111 pounds this AM. cr is improving down to 1.6 discussed with his hydroelectric plant electrical engineer....plan to give 2more dose iv lasix today then dc later today on torsemide 20mg bid with 20 kcl and lower coumadin to 1.25mg daily....f/u next week in cardiology office RIO planned as outpt to further evaluate the mitral valve. Atrial fibrillation s/p ablation x 3 Patient had an INR check an outpatient hydroelectric plant electrical engineer office was greater than 4 will hold Coumadin at this time see above HTN Continue patient's home amlodipine 2.5 mg p.o. daily Monitor blood pressure Gout Continue patient's home allopurinol hyperlipidemia Continue patients on statin GERD Continue patient's home Omeprazole and Zantac DVT prophylaxis with SCDs patient is also on Coumadin - Time Spent with Patient Total time spent providing and/or coordinating discharge services: Greater than 30 minutes - Quality: VTE Deep Vein Thrombosis/Pulmonary Embolism Present on Admission: No Exam Vital signs: heart reg. systolic murm lsb to axilla lung cta abd s/nt ext thigh edema resolved. 2plus lower ext edema trista Results Procedures completed during hospitalization: none - Impressions ITS Impressions Chest X-Ray 03/24/18 00:00 CONCLUSION: Borderline compensated cardiomegaly. Otherwise negative one view chest x-ray. Discharge Plan - Discharge Disposition Patient Disposition: Discharge Home - Discharge Condition Condition: Stable - Discharge Order Discharge Orders: Discharge Order (Routine); Ordered 03/27/18 Ordered By: Fito Perales Cardiology Clear for Discharge (Routine); Ordered 03/27/18 Ordered By: November Shadeed - Discharge Details Anticipated Discharge Date: 03/27/18 Discharge Comment: dc home after 1pm dose lasix and seen by Dr Lyons. - Physicians Team Primary Care Provider: Ileana Silva Attending Provider: Fito Perales Other Providers: Buddy Lyons MD - Rxs /Orders / Referrals /Forms Prescriptions: New torsemide 10 mg Tablet 20 mg PO BID 30 Days Qty: 120 RF: 3 warfarin [Coumadin] 2.5 mg Tablet 1.25 mg PO DAILY 30 Days Qty: 15 RF: 3 Continue allopurinol 300 mg Tablet 150 mg PO DAILY amlodipine 5 mg Tablet 2.5 mg PO DAILY aspirin [Aspir-81] 81 mg Tablet,Delayed Release (Dr/Ec) 81 mg PO DAILY atorvastatin 10 mg Tablet 10 mg PO DAILY cholecalciferol (vitamin D3) [Vitamin D3] 2,000 unit Capsule 2,000 unit PO DAILY glucosamine-chondroitin [Osteo Bi-Flex] 250-200 mg Tablet 1 tab PO DAILY hydrocodone-acetaminophen 5-325 mg Tablet 1 tab PO BID metoprolol tartrate 25 mg Tablet 25 mg PO BID multivitamin Tablet 1 tab PO DAILY omeprazole 20 mg Capsule,Delayed Release(Dr/Ec) 40 mg PO BID ranitidine HCl 150 mg Tablet 150 mg PO HS temazepam 30 mg Capsule 30 mg PO HS PRN (Reason: Insomnia) vit B6-mag cit,oxid-potass cit [Theralith XR] 3.75-45-45-49.5 mg Tablet Extended Release PO BID Changed potassium chloride 10 mEq Tablet Extended Release 20 meq PO DAILY 30 Days RF: 0 Changed from: 10 meq oral daily Discontinued furosemide [Lasix] 40 mg Tablet 40 mg PO BID warfarin 2.5 mg Tablet 2.5 mg PO DAILY Referrals: Buddy Lyons MD [Physician] - See Instructions (3-5 days. check bmp, inr and reassess fluid overload. schedule rio.) Ileana Silva MD [Primary Care Provider] - See Instructions (1 week f/u) - Discharge Instructions Patient Printed Instructions: Warfarin (By mouth), Torsemide (By mouth), Heart Failure (DC), A-fib (Atrial Fibrillation) (DC) Additional Instructions: FOLLOW UP WITH DR LYONS NEXT WEEK; HAVE LABWORK FOR BMP AND PT/INR; DR LYONS WILL SCHEDULE A RIO TO CHECK YOUR MITRAL VALVE; WEAR ANETTE HOSE WHEN OUT OF BED; REMOVE AT NIGHT. - Post Discharge Care Plan Care Plan Goals: Discharge Care Plan Goals for Congestive Heart Failure Directions to Meet your Goals: 1. Diet: Limit your salt by doing the following: * Limit canned, dried, packaged, and fast foods. * Don't add salt to your food. * Season foods with herbs instead of salt. * Watch how much liquids you drink. Drinking too much can make heart failure worse. Talk with your health care provider about how much you should drink each day. * Limit the amount of alcohol you drink. It may harm your heart. Women should have no more than 1 drink a day and men should have no more than 2. * When you eat out, request that your meals have no added salt. 2. Activity: * You can benefit from simple activities such as walking or gardening. * Exercising most days of the week can make you feel better. * Don't be discouraged if your progress is slow at first. * Rest as needed. * Stop activity if you develop symptoms such as chest pain, lightheadedness, or significant shortness of breath. * Find activities that you enjoy, such as brisk walking, dancing, swimming, or gardening. These will help you stay active and strengthen your heart. 3. Medicine: * Take your medicines exactly as prescribed. * Learn the names and purpose of each of your medicines. * Keep an accurate medicine list and current dosages with you at all times. Don' t skip doses. * If you miss a dose of your medicine, take it as soon as you remember. * If you miss a dose and it's almost time for your next dose, just wait and take your next dose at the normal time. Don't take a double dose. * If you are unsure, call your doctor's office. Make sure not to mix up your medicines or forget what you've taken the same day. 4. Weight Monitoring: * Weigh yourself every day. A sudden weight gain can mean your heart failure is getting worse. * Weigh yourself at the same time of day and in the same kind of clothes. * Ideally, weigh yourself first thing in the morning after you empty your bladder, but before you eat breakfast. * If your weight goes up by more than 2 pounds in 1 day, 5 pounds in 1 week, or whatever weight gain you were told by your doctor, this is a sign that you are retaining more fluid than you should be. * Clues to weight gain include checking your ankles for swelling, or noticing you are short of breath when you lie down. 5. When to call your doctor: Call your doctor right away if you have any of these signs of worsening heart failure: Sudden weight gain (more than 2 pounds in 1 day or 5 pounds in 1 week, or whatever weight gain you were told to report by your doctor) Trouble breathing not related to being active New or increased swelling of your legs or ankles Swelling or pain in your abdomen Breathing trouble at night (waking up short of breath, needing more pillows to breathe) Frequent coughing that doesn't go away Feeling much more tired than usual 6. Follow up: Do Not miss your follow-up appointment. Keep up with all your appointments and yearly check ups Call 911 right away if you have: Severe shortness of breath, such that you can't catch your breath even while resting Severe chest pain that does not resolve with rest or nitroglycerin [place], foamy mucus with cough and shortness of breath A continuous rapid or irregular heartbeat Passing out or fainting Stroke symptoms such as sudden numbness or weakness on one side of your face , arm, or leg or sudden confusion, trouble speaking or vision changes
== END 2018-03-27 15:45 | disposition home or self-care (01) ==
LOC: N04 → INTOOBSV 14:06 → OBSVTOIN 16:41
PROVIDERS: ADMIT Hospitalist; ATTEND Hospitalist